=== PATIENT | female | born 1985 | race Caucasian/White ===

== ENCOUNTER 2016-05-05 08:24 | Day surgery (SDC) | payer OTHER ==
[2016-05-03 12:44] VITALS: BMI 48.4
--- NOTE | 2016-05-05 06:46 | P.HPOB ---
History of Present Illness H&P Date: 05/05/16 Chief Complaint: Dysfunctional uterine bleeding Patient is a 30-year-old female who has dysfunctional uterine bleeding. After review of her labs it would appear that she is anovulatory she may or may not have PCO S. Labs were reviewed with the patient. Due to the fact that she is having irregular bleeding for more than a year and only occasional episodes of bleeding will plan to do D&C hysteroscopy to rule out precancerous conditions such as hyperplasia. Risks, benefits, alternatives were discussed with patient in detail and did include bleeding infection and perforation. All the questions were answered for her prior to proceeding to the operating room. Past Medical History Past Medical History: No Reported History Additional Past Medical History / Comment(s): IRREGULAR PERIODS History of Any Multi-Drug Resistant Organisms: None Reported Past Surgical History: No Surgical Hx Reported Past Anesthesia/Blood Transfusion Reactions: No Reported Reaction Additional Past Anesthesia/Blood Transfusion Reaction / Comment(s): NO PRIOR SURGICAL HX Past Psychological History: No Psychological Hx Reported Smoking Status: Never smoker Past Alcohol Use History: None Reported Past Drug Use History: None Reported - Past Family History Mother Family Medical History: Cancer Medications and Allergies Home Medications Medication Instructions Recorded Confirmed Type Levothyroxine Sodium [Levoxyl] 150 mcg PO MOTUWETHFRSA 05/03/16 05/03/16 History Allergies Allergy/AdvReac Type Severity Reaction Status Date / Time No Known Allergies Allergy Verified 05/03/16 12:36 Exam Osteopathic Statement: *. No significant issues noted on an osteopathic structural exam other than those noted in the History and Physical/Consult. - OBG Physical Exam Breast: both: normal (no masses) Abdomen: bowel sounds normal, no diffuse tenderness, no bruit present, no guarding noted, no hepatomegaly, no splenomegaly, no mass Vulva: both: normal Vagina: normal moisture, no discharge Cervix: no lesion, no discharge Uterus: normal size, normal contour Adnexa: both: normal Anus/Rectum: normal perianal skin, no rectal mass, no hemorrhoids, heme negative
[~2016-05-05 08:24] MED LIST: DEXAMETHASONE SOD PHOSPHATE 10 MG/ML 1 ML VIAL IV ONE; HYDROmorphone 1 MG/ML 1 ML SYRINGE IVP PRN; LACTATED RINGERS 1,000 ML IV SCH; LIDOCAINE 1% 20 ML VIAL (10MG/ML) FOR IV START INTRADERMA PRN; ONDANSETRON 4 MG/2 ML VIAL IVP ONE; Pre Op ABX Message 1 EACH MISC MISCELLANE ONE; SCOPOLAMINE 1.5MG/72HR PATCH TRANSDERM ONE
[2016-05-05 08:45] VITALS: RESP 16
[2016-05-05] MEDS ORDERED: KETOROLAC 30 MG/ML 1 ML VIAL ONE (09:46)
[2016-05-05] MEDS ORDERED: fentaNYL (PF) 50 MCG/ML 2 ML AMP ONE (09:46)
[2016-05-05] MEDS ORDERED: PROPOFOL 10 MG/ML 20 ML VIAL IV ONE (09:46)
[2016-05-05] MEDS ORDERED: SUCCINYLCHOLINE CHLORIDE 100 MG/5 ML SYR IV ONE (09:46)
[2016-05-05] MEDS ORDERED: MIDAZOLAM 2 MG/2 ML VIAL ONE (09:46)
[2016-05-05] MEDS ORDERED: LIDOCAINE 1% INJ 10MG/ML (20 ML MDV) ONE (09:46)
[2016-05-05 09:59] LABS: Anisocytosis Slight; Basophils # (A) 0.1 k/uL (0-0.2); Basophils % (A) 1 %; CH 22.3; CHCM 31.8; Eosinophils # (A) 0.2 k/uL (0-0.7); Eosinophils % (A) 3 %; HCT 35.6 % (34.0-46.0); HDW 3.21; HGB 11.8 gm/dL (11.4-16.0); Hypochromasia Slight; Luc # (Auto) 0.09; Luc % (Auto) 1; Lymphocytes # (A) 1.8 k/uL (1.0-4.8); Lymphocytes % (A) 22 %; MCH 23.4 pg (25.0-35.0); MCHC 33.2 g/dL (31.0-37.0); MCV 70.4 fL (80.0-100.0); Mean Platelet Volume 7.7; Microcytosis Moderate; Monocytes # (A) 0.8 k/uL (0-1.0); Monocytes % (A) 9 %; Neutrophils # (A) 5.3 k/uL (1.3-7.7); Neutrophils % (A) 65 %; RBC 5.05 m/uL (3.80-5.40); RDW 16.7 % (11.5-15.5); WBC 8.2 k/uL (3.8-10.6)
--- NOTE | 2016-05-05 10:11 | P.OP ---
Date of Procedure: 05/05/16 Preoperative Diagnosis: Dysfunctional uterine bleeding Postoperative Diagnosis: Same Procedure(s) Performed: D&C with hysteroscopy Anesthesia: LIZZY Surgeon: Kartik Donahue Estimated Blood Loss (ml): 5 Pathology: other (Uterine curettings) Condition: stable Disposition: same day Operative Findings: Proliferative endometrium Description of Procedure: Patient was taken to the operating suite where a general anesthetic was found to be adequate. She was prepped and draped in the normal sterile fashion and placed in the dorsal lithotomy position. Initially a weighted speculum was inserted in the vagina into lip of the cervix identified and grasped single- toothed tenaculum. Cervix was then dilated camera was inserted. Proliferative endometrium was discovered. Camera was then removed and sharp curettings of endometrium were obtained. All this tissue was collected and placed on Telfa and sent to pathology for evaluation. Sponge lap, needle counts were all correct 2 and patient was taken to the recovery room in stable and satisfactory condition. Plan - Discharge Summary New Discharge Prescriptions: Ibuprofen [Motrin] 600 mg PO Q6HR PRN #30 tab PRN Reason: Pain Discharge Medication List Levothyroxine Sodium [Levoxyl] 150 mcg PO MOTUWETHFRSA 05/03/16 [History] Ibuprofen [Motrin] 600 mg PO Q6HR PRN #30 tab 05/05/16 [Rx] Follow up Appointment(s)/Referral(s): Kartik Donahue DO [Doctor of Osteopathic Medicine] - 2 Weeks Activity/Diet/Wound Care/Special Instructions: Pelvic rest, no heavy lifting, limit stairs and driving. If any high temperatures, heavy bleeding, or severe pain call my office Discharge Disposition: HOME SELF-CARE
[2016-05-05 10:17] LABS: Manual Review Performed
[2016-05-05 10:31] VITALS: TEMP 96.8
[2016-05-05 12:11] VITALS: BP 128/80; PULSE 90
== END 2016-05-05 12:28 | disposition home or self-care (01) ==
LOC: OR 08:24
PROVIDERS: ATTEND Obstetrics & Gynecology
DX: N85.01 Benign endometrial hyperplasia (principal); N93.8 Other specified abnormal uterine and vaginal bleeding; E07.9 Disorder of thyroid, unspecified; Z79.899 Other long term (current) drug therapy
CPT/HCPCS: 81025; 88305; 85025; 58558; J2250; J1100; J2405; J2001; J3010; J1885; J0330; J2704

== ENCOUNTER → 2016-08-01 | Outpatient (CLI) | payer OTHER ==
[2016-08-01 16:46] LABS: Anisocytosis Slight; Basophils % (A) 0 %; CH 22.9; CHCM 30.2; Eosinophils # (A) 0.3 k/uL (0-0.7); Eosinophils % (A) 3 %; HCT 40.4 % (34.0-46.0); HDW 2.85; HGB 12.5 gm/dL (11.4-16.0); Hypochromasia Marked; Luc # (Auto) 0.25; Luc % (Auto) 2; Lymphocytes # (A) 2.4 k/uL (1.0-4.8); Lymphocytes % (A) 22 %; MCH 23.5 pg (25.0-35.0); MCHC 30.8 g/dL (31.0-37.0); MCV 76.1 fL (80.0-100.0); Mean Platelet Volume 6.8; Microcytosis Slight; Monocytes # (A) 0.5 k/uL (0-1.0); Monocytes % (A) 5 %; Neutrophils # (A) 7.4 k/uL (1.3-7.7); Neutrophils % (A) 68 %; RBC 5.31 m/uL (3.80-5.40); RDW 16.4 % (11.5-15.5); WBC 10.9 k/uL (3.8-10.6); WBC (Perox) 11.56
== END | disposition home or self-care (01) ==
LOC: LABPAT 16:16
PROVIDERS: ATTEND Obstetrics & Gynecology
DX: Z01.812 Encounter for preprocedural laboratory examination (principal)
CPT/HCPCS: 85025

== ENCOUNTER 2016-08-04 06:16 | Day surgery (SDC) | payer OTHER ==
[2016-08-02 09:36] VITALS: BMI 36.4
[~2016-08-04 06:16] MED LIST changes: -HYDROmorphone 1 MG/ML 1 ML SYRINGE IVP PRN; -LIDOCAINE 1% 20 ML VIAL (10MG/ML) FOR IV START INTRADERMA PRN; +MIDAZOLAM 2 MG/2 ML VIAL IV PRN; -SCOPOLAMINE 1.5MG/72HR PATCH TRANSDERM ONE
--- NOTE | 2016-08-04 07:42 | P.HPOB ---
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 She has been on Provera for approximately 3 months and we are now planning rebiopsy to verify resolution. If this is negative the plan will be to have her see infertility as she is interested in getting . Past medical history otherwise significant for hypothyroidism. Past surgical history D&C. ALLERGIES none. Social history none. Medications include Provera and levothyroxin. Family history of lung cancer. On physical exam this is an obese female whose HEENT is unremarkable. Heart regular, lungs clear , extremities without pain. Abdomen is soft positive bowel sounds are noted. Pelvic exam is otherwise unremarkable. Assessment dysfunctional uterine bleeding with simple hyperplasia with atypia. Plan D&C Past Medical History Past Medical History: No Reported History Additional Past Medical History / Comment(s): IRREGULAR PERIODS History of Any Multi-Drug Resistant Organisms: None Reported Past Surgical History: No Surgical Hx Reported Additional Past Surgical History / Comment(s): D&C Past Anesthesia/Blood Transfusion Reactions: No Reported Reaction Additional Past Anesthesia/Blood Transfusion Reaction / Comment(s): NO PRIOR SURGICAL HX Past Psychological History: No Psychological Hx Reported Smoking Status: Never smoker Past Alcohol Use History: None Reported Past Drug Use History: None Reported - Past Family History Mother Family Medical History: Cancer Additional Family Medical History / Comment(s): LUNG CANCER Medications and Allergies Home Medications Medication Instructions Recorded Confirmed Type Levothyroxine Sodium [Levoxyl] 150 mcg PO MOTUWETHFRSA 05/03/16 08/04/16 History Allergies Allergy/AdvReac Type Severity Reaction Status Date / Time No Known Allergies Allergy Verified 08/04/16 06:29 Exam Osteopathic Statement: *. No significant issues noted on an osteopathic structural exam other than those noted in the History and Physical/Consult. - Vital Signs Vital signs: Vital Signs Temp Pulse Resp BP Pulse Ox 08/04/16 06:37 97.1 F L 87 16 139/82 99
[2016-08-04] MEDS ORDERED: MIDAZOLAM 2 MG/2 ML VIAL ONE (07:55)
[2016-08-04] MEDS ORDERED: LIDOCAINE 1% INJ 10MG/ML (20 ML MDV) ONE (07:55)
[2016-08-04] MEDS ORDERED: KETOROLAC 30 MG/ML 1 ML VIAL ONE (07:55)
[2016-08-04] MEDS ORDERED: PROPOFOL 10 MG/ML 20 ML VIAL IV ONE (07:55)
[2016-08-04] MEDS ORDERED: fentaNYL (PF) 50 MCG/ML 2 ML AMP ONE (07:55)
--- NOTE | 2016-08-04 08:19 | P.OP ---
Date of Procedure: 08/04/16 Preoperative Diagnosis: Dysfunctional uterine bleeding with simple hyperplasia Postoperative Diagnosis: Same Procedure(s) Performed: Dilation and curettage Anesthesia: LIZZY Surgeon: Kartik Donahue Estimated Blood Loss (ml): 1 Pathology: other (Uterine curettings) Condition: stable Disposition: same day Operative Findings: Await pathology Description of Procedure: The patient was taken to the operative suite where a general anesthetic was found be adequate. She was prepped and draped in normal sterile fashion placed in dorsal lithotomy position. Initially a weighted speculum was inserted in the vagina and the anterior lip cervix was identified and grasped with an Allis clamp. Cervix was then dilated and sharp curettings were obtained. This tissue was collected on Telfa paper and sent to pathology for evaluation. Once completed all instruments were removed sponge, lap and needle counts were correct patient was taken to the recovery room in stable and satisfactory condition. Plan - Discharge Summary New Discharge Prescriptions: Ibuprofen [Motrin] 600 mg PO Q6HR PRN #30 tab PRN Reason: Pain Discharge Medication List Levothyroxine Sodium [Levoxyl] 150 mcg PO MOTUWETHFRSA 05/03/16 [History] Ibuprofen [Motrin] 600 mg PO Q6HR PRN #30 tab 08/04/16 [Rx] Follow up Appointment(s)/Referral(s): Kartik Donahue DO [Doctor of Osteopathic Medicine] - 2 Weeks Activity/Diet/Wound Care/Special Instructions: No heavy lifting today, limit stairs and driving. Pelvic rest. If any high temperatures, heavy bleeding, or severe pain call my office Discharge Disposition: HOME SELF-CARE
[2016-08-04 08:31] VITALS: RESP 16; TEMP 97
[2016-08-04 09:29] VITALS: BP 131/78; PULSE 79
== END 2016-08-04 09:39 | disposition home or self-care (01) ==
LOC: OR 06:16
PROVIDERS: ATTEND Obstetrics & Gynecology
DX: N85.01 Benign endometrial hyperplasia (principal); R87.612 Low grade squamous intraepithelial lesion on cytologic smear of cervix (LGSIL); E07.9 Disorder of thyroid, unspecified; Z79.899 Other long term (current) drug therapy; Z80.1 Family history of malignant neoplasm of trachea, bronchus and lung; Z79.3 Long term (current) use of hormonal contraceptives
CPT/HCPCS: 81025; 88305; 58120; J2250; J1100; J2405; J2001; J3010; J1885; J2704

== ENCOUNTER → 2017-01-14 | Outpatient (CLI) | payer OTHER ==
[2017-01-14 11:54] LABS: Anisocytosis Slight; Basophils % (A) 0 %; CH 22.3; Eosinophils # (A) 0.4 k/uL (0-0.7); Eosinophils % (A) 4 %; HCT 40.1 % (34.0-46.0); HDW 2.76; HGB 12.9 gm/dL (11.4-16.0); Hypochromasia Marked; Luc % (Auto) 2; Lymphocytes # (A) 2.9 k/uL (1.0-4.8); Lymphocytes % (A) 24 %; MCHC 32.1 g/dL (31.0-37.0); MCV 74.7 fL (80.0-100.0); Mean Platelet Volume 6.3; Microcytosis Moderate; Monocytes # (A) 0.5 k/uL (0-1.0); Monocytes % (A) 4 %; Neutrophils # (A) 8.2 k/uL (1.3-7.7); Neutrophils % (A) 67 %; RBC 5.37 m/uL (3.80-5.40); RDW 17.6 % (11.5-15.5); WBC 12.2 k/uL (3.8-10.6); WBC (Perox) 11.88
== END | disposition home or self-care (01) ==
LOC: LABPAT 11:27
PROVIDERS: ATTEND Obstetrics & Gynecology
DX: Z01.812 Encounter for preprocedural laboratory examination (principal)
CPT/HCPCS: 36415; 85025

== ENCOUNTER 2017-01-19 06:35 | Day surgery (SDC) | payer OTHER ==
[2017-01-16 12:09] VITALS: BMI 48.2
--- NOTE | 2017-01-19 06:15 | P.HPOB ---
History of Present Illness H&P Date: 01/19/17 Chief Complaint: Hyperplasia Patient is a 31-year-old female who has simple hyperplasia has been on Provera. She has been taking this now for almost 6 months and despite the initial 3 months treatment did continue to have simple hyperplasia. We are repeating the D&C today to verify resolution of this solution may initiate infertility treatment. On physical exam this is a obese female whose HEENT is otherwise unremarkable. Heart regular, lungs clear, extremities without pain. Osteopathic exam unremarkable. Abdomen soft with positive bowel sounds and her pelvic exam is otherwise unremarkable. Assessment simple hyperplasia. Plan dilation and curettage Past Medical History Past Medical History: No Reported History Additional Past Medical History / Comment(s): IRREGULAR PERIODS History of Any Multi-Drug Resistant Organisms: None Reported Past Surgical History: No Surgical Hx Reported Additional Past Surgical History / Comment(s): PRIOR D & C AND HYSTEROSCOPIES X 3 Past Anesthesia/Blood Transfusion Reactions: No Reported Reaction Additional Past Anesthesia/Blood Transfusion Reaction / Comment(s): NO PRIOR SURGICAL HX Smoking Status: Never smoker - Past Family History Mother Family Medical History: Cancer Medications and Allergies Home Medications Medication Instructions Recorded Confirmed Type Levothyroxine Sodium [Levoxyl] 150 mcg PO MOTUWETHFRSA 05/03/16 01/16/17 History Allergies Allergy/AdvReac Type Severity Reaction Status Date / Time No Known Allergies Allergy Verified 01/16/17 12:05 Exam Osteopathic Statement: *. No significant issues noted on an osteopathic structural exam other than those noted in the History and Physical/Consult.
[~2017-01-19 06:35] MED LIST changes: +HYDROmorphone 0.5 MG/0.5 ML SYRINGE IVP PRN; -LACTATED RINGERS 1,000 ML IV SCH; -MIDAZOLAM 2 MG/2 ML VIAL IV PRN
[2017-01-19] MEDS: LACTATED RINGERS 1,000 ML IV SCH ×2 (07:01→07:18)
[2017-01-19] MEDS ORDERED: LIDOCAINE 1% 20 ML VIAL (10MG/ML) FOR IV START SQ ONE (07:02)
[2017-01-19] MEDS ORDERED: PROPOFOL 10 MG/ML 20 ML VIAL IV ONE (07:20)
[2017-01-19] MEDS ORDERED: KETOROLAC 30 MG/ML 1 ML VIAL ONE (07:20)
[2017-01-19] MEDS ORDERED: MIDAZOLAM 2 MG/2 ML VIAL ONE (07:20)
[2017-01-19] MEDS ORDERED: fentaNYL (PF) 50 MCG/ML 2 ML AMP ONE (07:20)
--- NOTE | 2017-01-19 07:42 | P.OP ---
Date of Procedure: 01/19/17 Preoperative Diagnosis: Simple hyperplasia Postoperative Diagnosis: Same Procedure(s) Performed: D&C Anesthesia: LIZZY Surgeon: Kartik Donahue Estimated Blood Loss (ml): 3 Pathology: other (Uterine curettings) Condition: stable Disposition: same day Operative Findings: Pathology pending Description of Procedure: Patient states the operating suite where a general anesthetic was found be adequate. She was prepped and draped in normal sterile fashion placed in dorsal lithotomy position. Initially a speculum was inserted into the vagina into lip cervix was grasped with an Allis clamp and the cervix was dilated. Sharp curettings of the endometrium were obtained and all tissues collected placed on Telfa. This tissue was sent to pathology. All instruments were then removed sponge, lap, needle counts were all correct 2. Patient was taken to the recovery room in stable and satisfactory condition. Plan - Discharge Summary New Discharge Prescriptions: No Action Levothyroxine Sodium [Levoxyl] 150 mcg PO MOTUWETHFRSA Discharge Medication List Levothyroxine Sodium [Levoxyl] 150 mcg PO MOTUWETHFRSA 05/03/16 [History] Follow up Appointment(s)/Referral(s): Kartik Donahue DO [Doctor of Osteopathic Medicine] - 2 Weeks Activity/Diet/Wound Care/Special Instructions: No heavy lifting limited stairs and driving and no pelvic rest today. If any high temperatures, heavy bleeding, or severe pain call the office Discharge Disposition: HOME SELF-CARE
[2017-01-19 07:51] VITALS: TEMP 97.6
[2017-01-19 09:01] VITALS: BP 128/87; PULSE 80; RESP 18
== END 2017-01-19 09:24 | disposition home or self-care (01) ==
LOC: OR 06:35
PROVIDERS: ATTEND Obstetrics & Gynecology
DX: N85.02 Endometrial intraepithelial neoplasia [EIN] (principal); E07.9 Disorder of thyroid, unspecified; Z79.899 Other long term (current) drug therapy
CPT/HCPCS: 81025; 58120; J2250; J1100; J2405; J3010; J1885; J2704; 88305

== ENCOUNTER → 2017-06-14 | Outpatient (CLI) | payer OTHER | END | disposition home or self-care (01) | LOC: LABWHC1 11:53 | PROVIDERS: ATTEND Internal Medicine Endocrinology, Diabetes & Metabolism | DX: E06.3 Autoimmune thyroiditis (principal) | CPT/HCPCS: 36415; 84443 ==

== ENCOUNTER 2019-03-11 21:59 | Inpatient (IN) | payer OTHER ==
--- NOTE | 2019-03-11 22:24 | XR ---
EXAMINATION TYPE: XR chest 2V DATE OF EXAM: 03/11/2019 COMPARISON: NONE HISTORY: Cough and fever TECHNIQUE: Frontal and lateral views of the chest are obtained. FINDINGS: There is some coarse airspace infiltrate in the right lower lobe and also to a lesser exte nt left upper lobe. Heart size is normal. There is no heart failure. There is no pleural effusion. Th ere is also some mild infiltrate left lower lobe. IMPRESSION: Bilateral pneumonia. Normal heart.
[2019-03-11] MEDS ORDERED: LEVOFLOXACIN 750MG-D5W PMX 750 MG in DEXTROSE/WATER 1 150ML.BAG IVPB STA (22:32)
[2019-03-11] MEDS ORDERED: IPRATROPIUM-ALBUTEROL 3 ML NEB INHALATION STA (22:32)
[2019-03-11] MEDS ORDERED: PIPERACILLIN-TAZOBACTAM 3.375 GM in SODIUM CHLORIDE 0.9% 100 ML IVPB STA (23:02)
[2019-03-11] MEDS ORDERED: methylPREDNISolone SOD SUCCI 125 MG/2 ML VIAL IV STA (23:06)
[2019-03-11 23:15] LABS: Appearance,Urine Clear (Clear); Bilirubin,Urine Negative (Negative); Blood,Urine Negative (Negative); Color,Urine Yellow; Glucose,Urine (UA) Negative (Negative); Hyaline Casts,Urine 3 /lpf (0-2); Ketones,Urine Trace (Negative); Leukocyte Esterase,Urine Negative (Negative); Mucus,Urine Occasional /hpf; Nitrite,Urine Negative (Negative); PH, Urine 5.5 (5.0-8.0); Protein,Urine 1+ (Negative); RBC,Urine 1 /hpf (0-5); Specific Gravity,Urine 1.026 (1.001-1.035); Squamous Epithelial Cell,Urine 2 /hpf (0-4); Urobilinogen,Urine <2.0 mg/dL (<2.0)
[2019-03-11 23:26] LABS: ALT 50 U/L (9-52); AST 37 U/L (14-36); African American GFR (CKD) >90 (>60 ml/min/1.73 sqM); Albumin 4.4 g/dL (3.5-5.0); Alkaline Phosphatase 75 U/L (38-126); Anion Gap 14 mmol/L; Blood Urea Nitrogen 11 mg/dL (7-17); Calcium 9.3 mg/dL (8.4-10.2); Carbon Dioxide 20 mmol/L (22-30); Chloride 103 mmol/L (98-107); Glucose 134 mg/dL (74-99); Non-African American GFR(CKD) 84 (>60 ml/min/1.73 sqM); Potassium 4.4 mmol/L (3.5-5.1); Sodium 137 mmol/L (137-145); Total Bilirubin 0.4 mg/dL (0.2-1.3); Total Protein 8.1 g/dL (6.3-8.2)
[2019-03-11] MEDS ORDERED: IBUPROFEN 600 MG TAB PO STA (23:31)
[2019-03-11] MEDS ORDERED: ACETAMINOPHEN TAB 325 MG TAB PO STA (23:31)
[2019-03-11 23:33] LABS: Basophils % (A) 0 %; Eosinophils % (A) 0 %; HCT 41.4 % (34.0-46.0); Lymphocytes # (A) 0.8 k/uL (1.0-4.8); Lymphocytes % (A) 7 %; MCH 26.5 pg (25.0-35.0); MCHC 33.8 g/dL (31.0-37.0); MCV 78.3 fL (80.0-100.0); Monocytes # (A) 0.5 k/uL (0-1.0); Monocytes % (A) 4 %; Neutrophils # (A) 11.1 k/uL (1.3-7.7); Neutrophils % (A) 88 %; Platelet Count 251 k/uL (150-450); RBC 5.29 m/uL (3.80-5.40); RDW 14.6 % (11.5-15.5); WBC 12.6 k/uL (3.8-10.6)
--- NOTE | 2019-03-11 23:35 | ED ---
General Adult HPI - General Chief complaint: Upper Respiratory Infection Stated complaint: pneumonia Time Seen by Provider: 03/11/19 22:07 Source: patient, RN notes reviewed, old records reviewed Mode of arrival: ambulatory Limitations: no limitations - History of Present Illness Initial comments: 33-year-old female patient with no pertinent past to press ED chief complaint of approximately 1 week of cough and fever. Patient reports that approximately one week ago she presented to urgent care with cough and fever and she was placed on Augmentin. Patient was that after one week of Augmentin her symptoms have not improved. Patient went back to urgent care today where she reportedly had low pulse oxygenation. A was administered a gram Rocephin since emergency department. Patient was that she continues to have cough and some mild shortness of breath. Denies any chest pain. Denies any chance of being . Does report some fevers and chills. Denies any other complaints at this time. Denies any history of smoking. Denies any history of asthma. Systemic: Pt denies fatigue,rash. Pt denies weakness, night sweats, weight loss. Neuro: Pt denies headache, visual disturbances, syncope or pre-syncope. HEENT: Pt denies ocular discharge or irritation, otalgia, rhinorrhea, pharyngitis or notable lymphadenopathy. Cardiopulmonary: Pt denies chest pain, heart palpitations, dyspnea on exertion. Abdominal/GI: Pt denies abdominal pain, n/v/d. : Pt denies dysuria, burning w/ urination, frequency/urgency. Denies new onset urinary or bowel incontinence. MSK: Pt denies myalgia, loss of strength or function in extremities. Neuro: Pt denies new onset weakness, paresthesias. - Related Data Home Medications Medication Instructions Recorded Confirmed Levothyroxine Sodium [Levoxyl] 150 mcg PO MOTUWETHFRSA 05/03/16 01/19/17 Allergies Allergy/AdvReac Type Severity Reaction Status Date / Time No Known Allergies Allergy Verified 03/11/19 22:04 Review of Systems ROS Statement: Those systems with pertinent positive or pertinent negative responses have been documented in the HPI. ROS Other: All systems not noted in ROS Statement are negative. Past Medical History Past Medical History: No Reported History Additional Past Medical History / Comment(s): IRREGULAR PERIODS History of Any Multi-Drug Resistant Organisms: None Reported Past Surgical History: No Surgical Hx Reported Past Anesthesia/Blood Transfusion Reactions: No Reported Reaction Additional Past Anesthesia/Blood Transfusion Reaction / Comment(s): NO PRIOR SURGICAL HX Past Psychological History: No Psychological Hx Reported Smoking Status: Never smoker Past Alcohol Use History: None Reported Past Drug Use History: None Reported - Past Family History Mother Family Medical History: Cancer General Exam - General Exam Comments Initial Comments: Constitutional: NAD, AOX3, Pt has pleasant affect. HEENT: NC/AT, trachea midline, neck supple, no lymphadenopathy. Posterior pharynx non erythematous, without exudates. External ears appear normal, without discharge. Mucous membranes moist. Eyes PERRLA, EOM intact. There is no scleral icterus. No pallor noted. Cardiopulmonary: RRR, no murmurs, rubs or gallops, no JVD noted. Wheezing noted in anterior and posterior lung barnes, improved after breathing treatment.. No peripheral edema. Abdominal exam: Abdomen soft and non-distended. Abdomen non-tender to palpation in all 4 quadrants. Bowel sounds active in LLQ. No hepatosplenomegaly. No ecchymosis Neuro: CN II-XII grossly intact. No nuchal rigidity. No raccon eyes, no zepeda sign, no hemotympanum. No cervical spinal tenderness. MSK: No posterior calf tenderness bilaterally, homans sign negative bilaterally. Posterior tibialis and radial pulse +2 bilaterally. Sensation intact in upper and lower extremities. Full active ROM in upper and lower extremities, 5/5 stregnth. Limitations: no limitations Course Vital Signs 03/11/19 03/11/19 03/11/19 22:01 22:12 22:39 Temperature 99.9 F H Pulse Rate 105 H 101 H Respiratory 20 20 20 Rate Blood Pressure 185/95 144/74 O2 Sat by Pulse 93 L 90 L Oximetry 03/11/19 23:01 Temperature Pulse Rate 104 H Respiratory Rate Blood Pressure O2 Sat by Pulse Oximetry Medical Decision Making - Medical Decision Making 33-year-old female patient presents ED with failed outpatient treatment of pneumonia. Patient complains of cough, fever, shortness of breath. Denies any chest pain. Patient vital signs displayed mild tachycardia, hypoxia, fever. Pa tient administered antipyretic.. Physical exam displayed wheezing in anterior lung barnes. Much improved after breathing treatment. Laboratory investigations revealed mild leukocytosis. Chest x-ray displayed bilateral pneumonia. Patient will be admitted for failed outpatient treatment of pneumon ia. Initiated on Zosyn, Levaquin. Case discussed and patient seen by Dr. Barboza. - Lab Data Result diagrams: 03/11/19 23:00 Lab Results 03/11/19 03/11/19 03/11/19 Range/Units 23:00 23:00 23:00 Sodium 137 (137-145) mmol/L Potassium 4.4 (3.5-5.1) mmol/L Chloride 103 (98-107) mmol/L Carbon Dioxide 20 L (22-30) mmol/L Anion Gap 14 mmol/L BUN 11 (7-17) mg/dL Creatinine 0.92 (0.52-1.04) mg/dL Est GFR (CKD-EPI)AfAm >90 (>60 ml/min/1.73 sqM) Est GFR (CKD-EPI)NonAf 84 (>60 ml/min/1.73 sqM) Glucose 134 H (74-99) mg/dL Plasma Lactic Acid Kenneth (0.7-2.0) mmol/L Calcium 9.3 (8.4-10.2) mg/dL Total Bilirubin 0.4 (0.2-1.3) mg/dL AST 37 H (14-36) U/L ALT 50 (9-52) U/L Alkaline Phosphatase 75 (38-126) U/L Total Protein 8.1 (6.3-8.2) g/dL Albumin 4.4 (3.5-5.0) g/dL Urine Color Yellow Urine Appearance Clear (Clear) Urine pH 5.5 (5.0-8.0) Ur Specific [place] 1.026 (1.001-1.035) Urine Protein 1+ H (Negative) Urine Glucose (UA) Negative (Negative) Urine Ketones Trace H (Negative) Urine Blood Negative (Negative) Urine Nitrite Negative (Negative) Urine Bilirubin Negative (Negative) Urine Urobilinogen <2.0 (<2.0) mg/dL Ur Leukocyte Esterase Negative (Negative) Urine RBC 1 (0-5) /hpf Urine WBC 1 (0-5) /hpf Ur Squamous Epith Cells 2 (0-4) /hpf Hyaline Casts 3 H (0-2) /lpf Urine Mucus Occasional H (None) /hpf Urine HCG, Qual Not Detected (Not Detectd) 11/18/19 Range/Units 23:00 Sodium (137-145) mmol/L Potassium (3.5-5.1) mmol/L Chloride (98-107) mmol/L Carbon Dioxide (22-30) mmol/L Anion Gap mmol/L BUN (7-17) mg/dL Creatinine (0.52-1.04) mg/dL Est GFR (CKD-EPI)AfAm (>60 ml/min/1.73 sqM) Est GFR (CKD-EPI)NonAf (>60 ml/min/1.73 sqM) Glucose (74-99) mg/dL Plasma Lactic Acid Kenneth 1.3 (0.7-2.0) mmol/L Calcium (8.4-10.2) mg/dL Total Bilirubin (0.2-1.3) mg/dL AST (14-36) U/L ALT (9-52) U/L Alkaline Phosphatase (38-126) U/L Total Protein (6.3-8.2) g/dL Albumin (3.5-5.0) g/dL Urine Color Urine Appearance (Clear) Urine pH (5.0-8.0) Ur Specific [place] (1.001-1.035) Urine Protein (Negative) Urine Glucose (UA) (Negative) Urine Ketones (Negative) Urine Blood (Negative) Urine Nitrite (Negative) Urine Bilirubin (Negative) Urine Urobilinogen (<2.0) mg/dL Ur Leukocyte Esterase (Negative) Urine RBC (0-5) /hpf Urine WBC (0-5) /hpf Ur Squamous Epith Cells (0-4) /hpf Hyaline Casts (0-2) /lpf Urine Mucus (None) /hpf Urine HCG, Qual (Not Detectd) Disposition Clinical Impression: Community acquired pneumonia Disposition: ADMITTED IP TO THIS [facility] Condition: Serious Is patient prescribed a controlled substance at d/c from ED?: No Referrals: None,Stated [Primary Care Provider] - 1-2 days
[2019-03-11] MEDS ORDERED: ACETAMINOPHEN TAB 325 MG TAB PO PRN (23:36)
[2019-03-11] MEDS ORDERED: IBUPROFEN 800 MG TAB PO PRN (23:36)
[2019-03-12] MEDS: SODIUM CHLORIDE 0.9% 1,000 ML IV SCH ×3 (00:27→20:20)
[2019-03-12] MEDS: methylPREDNISolone SOD SUCCI 125 MG/2 ML VIAL IV SCH ×2 (00:51→06:03)
[2019-03-12] MEDS ORDERED: PIPERACILLIN-TAZOBACTAM 3.375 GM in SODIUM CHLORIDE 0.9% 100 ML IVPB SCH (08:00)
[2019-03-12] MEDS: IPRATROPIUM-ALBUTEROL 3 ML NEB INHALATION SCH ×4 (08:04→20:01)
--- NOTE | 2019-03-12 11:35 | P.HPIM ---
History of Present Illness This is a pleasant 33 years old female with no significant past medical history, who presents because of cough and fever. Patient has been having respiratory symptoms for about a week with cough and green phlegm and dyspnea but no chest pain or upper respiratory symptoms and amoxicillin and prednisone and other medicine that she cannot remember the name, she went to see her PCP yesterday and the walk-in clinic and for concern for nonimprovement and drop on her oxygen to 89 on room air she was referred to the hospital. Patient has mild headache and some diarrhea but no abdominal pain or change in urine habits. She's not in respiratory distress or so the patient. No vomiting. On admission she had fever of 99.9, tachycardic with an 05 and slightly tachypneic with a respiratory rate around 20. Labs showed leukocytosis of 12.6, BMP and liver enzymes were unremarkable. Chest x-ray: Bilateral pneumonia In the emergency room patient was started on ibuprofen, Levaquin 750 mg, Solu- Medrol 60 mg and Zosyn. Also she was started on normal saline at [address] Bains has been consulted from emergency room I offered test however patient declined areas risks benefits and alternatives are explained Patient denies smoking, alcohol or illicit drugs . Review of Systems CONSTITUTIONAL: No fever, no malaise, no fatigue. HEENT: No recent visual problems or hearing problems. Denied any sore throat. CARDIOVASCULAR: No orthopnea, PND, no palpitations, no syncope. PULMONARY: No shortness of breath, no cough, no hemoptysis. GASTROINTESTINAL: No diarrhea, no nausea, no vomiting, no abdominal pain. Normoactive bowel sounds. NEUROLOGICAL: No headaches, no weakness, no numbness. HEMATOLOGICAL: Denies any bleeding or petechiae. GENITOURINARY: Denies any burning micturition, frequency, or urgency. MUSCULOSKELETAL/RHEUMATOLOGICAL: Denies any joint pain, swelling, or any muscle pain. ENDOCRINE: Denies any polyuria or polydipsia. Past Medical History Past Medical History: No Reported History, Thyroid Disorder Additional Past Medical History / Comment(s): IRREGULAR PERIODS History of Any Multi-Drug Resistant Organisms: None Reported Past Surgical History: No Surgical Hx Reported Past Anesthesia/Blood Transfusion Reactions: No Reported Reaction Additional Past Anesthesia/Blood Transfusion Reaction / Comment(s): NO PRIOR SURGICAL HX Past Psychological History: No Psychological Hx Reported Smoking Status: Never smoker Past Alcohol Use History: None Reported Past Drug Use History: None Reported - Past Family History Mother Family Medical History: Cancer Medications and Allergies Home Medications Medication Instructions Recorded Confirmed Type No Known Home Medications 03/11/19 03/11/19 History Allergies Allergy/AdvReac Type Severity Reaction Status Date / Time No Known Allergies Allergy Verified 03/11/19 23:49 Physical Exam Vitals: Vital Signs Temp Pulse Pulse Resp BP BP Pulse Ox 03/12/19 05:55 98.1 F 89 20 127/78 93 L 03/12/19 00:30 20 93 L 03/12/19 00:10 98.1 F 93 20 127/79 91 L 03/11/19 23:51 93 L 03/11/19 23:01 104 H 03/11/19 22:39 101 H 20 144/74 90 L 03/11/19 22:12 20 03/11/19 22:01 99.9 F H 105 H 20 185/95 93 L Intake and Output 03/11/19 03/11/19 03/12/19 14:59 22:59 06:59 Other: # Voids 2 Weight 128.367 kg GENERAL: The patient is alert and oriented x3, not in any acute distress. Obese HEENT: Pupils are round and equally reacting to light. EOMI. No scleral icterus. No conjunctival pallor. Normocephalic, atraumatic. No pharyngeal erythema. No thyromegaly. CARDIOVASCULAR: S1 and S2 present. No murmurs, rubs, or gallops. -PULMONARY: Chest is harsh breath sounds to auscultation especially on the basis with scattered wheezing, no prolonged expiration ABDOMEN: Soft, nontender, nondistended, normoactive bowel sounds. No palpable organomegaly. MUSCULOSKELETAL: No joint swelling or deformity. EXTREMITIES: No cyanosis, clubbing, or pedal edema. NEUROLOGICAL: Gross neurological examination did not reveal any focal deficits. SKIN: No rashes. No petechiae Results CBC & Chem 7: 03/11/19 23:00 03/11/19 23:00 Labs: Abnormal Lab Results - Last 24 Hours (Table) 03/11/19 03/11/19 03/11/19 Range/Units 23:00 23:00 23:00 WBC 12.6 H (3.8-10.6) k/uL MCV 78.3 L (80.0-100.0) fL Neutrophils # 11.1 H (1.3-7.7) k/uL Lymphocytes # 0.8 L (1.0-4.8) k/uL Carbon Dioxide 20 L (22-30) mmol/L Glucose 134 H (74-99) mg/dL AST 37 H (14-36) U/L Urine Protein 1+ H (Negative) Urine Ketones Trace H (Negative) Hyaline Casts 3 H (0-2) /lpf Urine Mucus Occasional H (None) /hpf Thrombosis Risk Factor Assmnt - Choose All That Apply Each Factor Represents 1 point: Obesity (BMI >25) Other Risk Factors: No Other congenital or acquired thrombophilia - If yes, enter type in comment: No Thrombosis Risk Factor Assessment Total Risk Factor Score: 1 Thrombosis Risk Factor Assessment Level: Low Risk Assessment and Plan Assessment: Systemic inflammatory response syndrome with fever, tachycardia and tachypnea and leukocytosis Bilateral pneumonia with sepsis, present on admission Mild leukocytosis, secondary to above Plan: Labs and medication were reviewed.. Continue same treatment. Continue with symptomatic treatment. Resume home medication. Monitor lytes and vitals. DVT and GI prophylaxis. Further recommendations of the clinical course of the mando ent DVT prophylaxis: Subcutaneous heparin GI Prophylaxis: Pepcid PT/OT: Pending Prognosis is guarded
[2019-03-12 11:58] LABS: Glucose,Whole Blood 182 mg/dL (75-99)
--- NOTE | 2019-03-12 12:15 | CONS ---
CONSULTATION PULMONARY/CRITICAL CARE CONSULTATION: DATE OF CONSULTATION: March 12, 2019 This is a 33-year-old female who has no significant past medical history other than a few episodes in the past of bronchitis. She has no known history of any lung disease. For the last week or 10 days, she has not been feeling well. She presents to the emergency room with complaints of cough and fever. She had chest congestion, wheezing and some phlegm production. She apparently went to go see somebody at an urgent care center. She was treated with Augmentin. Subsequent to that, she went back to the Urgent Care and received a shot of Rocephin. She may have also received some breathing treatments and also some steroids. Because she really was not improving, the patient comes back to the emergency room where she was admitted with a diagnosis of pneumonia. She apparently was told at the Urgent Care Center without a chest x-ray that she had pneumonia, but again she was actually never seen by a physician. I believe she saw physician's orthodontic assistant and she never had a chest x-ray. Nonetheless, she is feeling much better. She is sitting upright in bed. She is not requiring any supplemental oxygen. Her breathing is improved. She does have a wet congested cough. MEDICATIONS: Her home medications include levothyroxine. ALLERGIES: She has no known allergies. MEDICAL HISTORY: Medical history includes hypothyroidism. SURGICAL HISTORY: Unremarkable. FAMILY HISTORY: Positive for mother with cancer. SOCIAL HISTORY: Negative for tobacco use. Denies alcohol or illicit drug use. No additional surgical history noted and as I mentioned above, no history previous of any lung disease. REVIEW OF SYSTEMS: CONSTITUTIONAL: Fever. NEUROLOGIC: Negative. HEENT: Negative. CARDIOVASCULAR: Negative. PULMONARY: Shortness of breath, chest congestion, cough, wheezing and phlegm production. GI: Negative. : Negative. RHEUMATOLOGIC: Negative. IMMUNOLOGIC: Negative. ENDOCRINOLOGIC: Negative. DERMATOLOGIC: Negative. PHYSICAL EXAMINATION: VITAL SIGNS: Current vital signs are reviewed. Temperature is 98.1, heart rate 88, respiratory rate 20, blood pressure 127/78, room-air saturation 93%. GENERAL: Appears in no acute distress. HEENT: Examination is grossly unremarkable. Mucous membranes are moist. No oral lesions. NECK: Supple. Full range of motion. No adenopathy, thyromegaly or neck vein distention. CARDIOVASCULAR: Examination reveals regular rhythm and rate. Heart rate 88 beats per minute. S1, S2 normal. No S3, S4, or murmur. LUNGS: Reveal coarse rhonchi. There are some expiratory wheezes. Some crackles bilaterally. Breath sounds equal bilaterally. ABDOMEN: Soft, but obese. Bowel sounds are heard. EXTREMITIES: Are intact. No cyanosis, clubbing, or edema. SKIN: Without rash. NEUROLOGIC: Examination is brief but nonfocal. LABS: Labs are reviewed. White count 12.6, hemoglobin 14, hematocrit 41.4, platelet count 251,000. Sodium 137, potassium 4.4, chloride 103, CO2 is 20. Anion gap is 14. BUN and creatinine were 11 and 0.92. Rest of the labs look okay. Urine is essentially negative. Influenza screen was negative. A chest x-ray shows bilateral airspace disease, mostly in the right lower lobe and somewhat in the left upper lung. Microbiology is currently pending or negative. MEDICATIONS: Medications are reviewed. Currently, she is on Tylenol, Motrin, insulin p.r.n., DuoNeb, Levaquin, Solu-Medrol, and was on Zosyn, that has been discontinued. ASSESSMENT: 1. Community-acquired pneumonia, in a patient who otherwise is very healthy. 2. History of hypothyroidism. 3. Mild bronchitis with bronchospasm. 4. No history of previous lung disease. 5. Obesity PLAN: The patient's medications are appropriate. We will cut back on the Solu-Medrol. We discontinued the Zosyn. Possible discharge tomorrow. We recommend deep breathing, coughing, clearing of secretions. We also recommend the incentive spirometer to be used every hour while awake. The updrafts are appropriate. Steroid dose is appropriate. It has been dropped down. Continue her on the Levaquin. Discontinue the Zosyn. We will continue to follow. Prognosis is good. MMODL / IJN: [id number] / GLORY
[2019-03-12] MEDS: INSULIN ASPART (NovoLOG) 100 UNIT/ML VIAL SQ SCH ×3 (12:40→22:18)
[2019-03-12 16:51] LABS: Glucose,Whole Blood 169 mg/dL (75-99)
[2019-03-12] MEDS: methylPREDNISolone SOD SUCCI 40 MG/ML 1 ML VIAL IV SCH ×2 (17:34→23:25)
[2019-03-12 20:42] LABS: Glucose,Whole Blood 201 mg/dL (75-99)
[2019-03-12] MEDS: FAMOTIDINE 20 MG/2 ML VIAL IV SCH (23:07)
[2019-03-12] MEDS: HEPARIN SODIUM,PORCINE 5,000 UNIT/ML 1 ML VIAL SQ SCH (23:08)
[2019-03-12] MEDS ORDERED: LEVOFLOXACIN 750MG-D5W PMX 750 MG in DEXTROSE/WATER 1 150ML.BAG IVPB SCH (23:15)
[2019-03-13 05:29] VITALS: BP 137/65; RESP 17; TEMP 97.9
[2019-03-13] MEDS: SODIUM CHLORIDE 0.9% 1,000 ML IV SCH (05:46)
[2019-03-13 06:35] LABS: Basophils % (A) 0 %; Eosinophils % (A) 0 %; HCT 40.3 % (34.0-46.0); HGB 13.2 gm/dL (11.4-16.0); Hypochromasia Slight; Lymphocytes # (A) 1.1 k/uL (1.0-4.8); Lymphocytes % (A) 6 %; MCH 26.1 pg (25.0-35.0); MCHC 32.7 g/dL (31.0-37.0); MCV 79.9 fL (80.0-100.0); Mean Platelet Volume 5.8; Monocytes # (A) 0.5 k/uL (0-1.0); Monocytes % (A) 3 %; Neutrophils # (A) 17.5 k/uL (1.3-7.7); Neutrophils % (A) 91 %; Platelet Count 306 k/uL (150-450); RBC 5.05 m/uL (3.80-5.40); RDW 14.8 % (11.5-15.5); WBC 19.3 k/uL (3.8-10.6)
[2019-03-13 06:54] LABS: Glucose,Whole Blood 130 mg/dL (75-99)
[2019-03-13] MEDS: IPRATROPIUM-ALBUTEROL 3 ML NEB INHALATION SCH ×2 (07:13→11:24)
[2019-03-13] MEDS: INSULIN ASPART (NovoLOG) 100 UNIT/ML VIAL SQ SCH ×2 (08:27→11:56)
[2019-03-13] MEDS: methylPREDNISolone SOD SUCCI 40 MG/ML 1 ML VIAL IV SCH (08:28)
[2019-03-13] MEDS: HEPARIN SODIUM,PORCINE 5,000 UNIT/ML 1 ML VIAL SQ SCH (08:29)
[2019-03-13] MEDS: FAMOTIDINE 20 MG/2 ML VIAL IV SCH (08:29)
[2019-03-13 11:30] LABS: Glucose,Whole Blood 124 mg/dL (75-99)
[2019-03-13 11:38] VITALS: PULSE 85
--- NOTE | 2019-03-13 11:39 | P.PN ---
Subjective Progress Note Date: 03/13/19 Principal diagnosis: Community-acquired pneumonia The patient is seen today 03/13/2019 in follow-up on the regular medical floor. She is sitting up in bed. Awake and alert in no acute distress. Breathing easier today compared to yesterday. Still with a loose productive cough. Maintaining good O2 saturations in the 90s on room air. She's afebrile. Hemodynamically stable. Blood culture reveals no growth. Sputum culture pending. White count 19.3. Hemoglobin 13.2. She is continued on DuoNeb inhalations, steroids, antibiotics. Objective - Vital Signs Vital signs: Vital Signs Temp 97.9 F 03/13/19 05:28 Pulse 84 03/13/19 11:24 Resp 17 03/13/19 08:00 BP 137/65 03/13/19 05:28 Pulse Ox 95 03/13/19 05:28 Intake & Output 03/12/19 03/13/19 03/13/19 18:59 06:59 18:59 Intake Total 630 300 Balance 630 300 Intake: Oral 630 300 Other: Voiding Method Toilet Toilet Toilet # Voids 4 2 - Exam GENERAL EXAM: Alert, active, pleasant 33-year-old female patient, on room air, comfortable in no apparent distress. HEAD: Normocephalic. EYES: Normal reaction of pupils, equal size. NOSE: Clear with pink turbinates. THROAT: No erythema or exudates. NECK: No masses, no JVD. CHEST: No chest wall deformity. LUNGS: Equal air entry with few scattered rhonchi. CVS: S1 and S2 normal with no audible murmur, regular rhythm. ABDOMEN: No hepatosplenomegaly, normal bowel sounds, no guarding or rigidity. SPINE: No scoliosis or deformity SKIN: No rashes CENTRAL NERVOUS SYSTEM: No focal deficits, tone is normal in all 4 extremities. EXTREMITIES: There is no peripheral edema. No clubbing, no cyanosis. Peripheral pulses are intact. - Labs CBC & Chem 7: 03/13/19 05:49 03/11/19 23:00 Labs: Abnormal Lab Results - Last 24 Hours (Table) 03/12/19 03/12/19 03/12/19 Range/Units 11:57 16:50 20:41 WBC (3.8-10.6) k/uL MCV (80.0-100.0) fL Neutrophils # (1.3-7.7) k/uL POC Glucose (mg/dL) 182 H 169 H 201 H (75-99) mg/dL 03/13/19 03/13/19 03/13/19 Range/Units 05:49 06:43 11:23 WBC 19.3 H (3.8-10.6) k/uL MCV 79.9 L (80.0-100.0) fL Neutrophils # 17.5 H (1.3-7.7) k/uL POC Glucose (mg/dL) 130 H 124 H (75-99) mg/dL Microbiology - Last 24 Hours (Table) 03/12/19 20:00 Gram Stain - Preliminary Sputum Sputum Culture - Preliminary 03/11/19 23:00 Blood Culture - Preliminary Blood No Growth after 24 hours Assessment and Plan Assessment: #1 Acute community-acquired pneumonia, failed outpatient treatment. #2 Hypothyroidism. #3 Mild bronchitis with bronchospasm. #4 Obesity. Plan: The patient was seen and evaluated by Dr. Joe. She is improved today as compared to yesterday. She is cleared for discharge from the pulmonary standpoint. Complete course of antibiotics. Complete course of prednisone. Follow-up in our office in 1-2 weeks' time. We will repeat a chest x-ray then. She is encouraged to call sooner with any recurrence of symptoms or other questions or concerns. I, the cosigning physician, performed a history & physical examination of the patient. Lungs sounds with few scattered rhonchi. Maintaining good O2 saturations in the 90s on room air. I discussed the assessment and plan of care with my nurse practitioner, Sheri Hernández. I attest to the above note as dictated by her.
--- NOTE | 2019-03-13 11:43 | P.DS ---
Providers Date of admission: 03/11/19 23:14 Attending physician: Clint Mart MD Consults: 03/11/19 23:20 Consult Physician Urgent Consulting Provider: Zander Joe Reason/Comments: pna Do you want consulting provider notified?: Yes Primary care physician: Stated None Hospital Course: Diagnoses: Systemic inflammatory response syndrome with fever, tachycardia and tachypnea and leukocytosis Bilateral pneumonia with sepsis, present on admission Mild leukocytosis, secondary to above. Worsening leukocytosis is mostly due to steroid effect Hospital course: This is a pleasant 33 years old female with no significant past medical history, who presents because of cough and fever. Patient has been having respiratory symptoms for about a week with cough and green phlegm and dyspnea but no chest pain or upper respiratory symptoms she was treated with antibiotics and steroids as an outpatient however she has minimal improvement, she wanted to the walk-in clinic and for concern for non-improvement and drop on her oxygen to 89 on room air she was referred to the hospital. Patient on presentation showing mild leukocytosis of 12.6 K and bilateral pneumonia on the chest x-ray. Patient was started on Levaquin 750 mg as limited to 60 mg which was downgraded to 40 mg as well as bronchodilators. Patient has been evaluated by distresser. Patient showed interval improvement and she is back close to her baseline, with minimal dyspnea, she could walk in the hallway with no difficulty. She still have some mild cough and loose bowel movement but no abdominal pain or vomiting. No chest pain. She starting diet well. She is hemodynamically stable and she is saturating 95% on room air. Patient does she can go home Patient denies other symptoms like no weakness or headache. Patient was cleared for discharge by pulmonary service Problems and management plan were discussed with the patient and he verbalized understanding and acceptance. at bedside upon patient request Patient was found stable and can be discharged home however he needs follow-up as an outpatient. Patient was instructed to follow up with PCP within one week (she told me she sees Dr. Ansari ) and distresser in 1-2 weeks and patient agrees. We offered to make appointments for the patient but she preferred to make her own appointments patient Patient will be discharged on short course of antibiotics and tapered steroids Gen: patient is a AAOx3, no distress CVS: S1-S2, RRR, no murmur Lungs: B/L CTA, no wheezing Abdomen: soft, no distention, no tenderness, positive bowel sounds Extremity: no leg edema or induration Time spent more than 35 minutes Patient Condition at Discharge: Serious Plan - Discharge Summary New Discharge Prescriptions: New Famotidine 10 mg PO BID #30 tab Levofloxacin [Levaquin] 500 mg PO Q24H 7 Days #7 tab predniSONE 0 mg PO DIRECTED #26 tab Acetaminophen Tab [Tylenol] 650 mg PO Q6HR PRN tab PRN Reason: Fever and/ or Mild Pain Albuterol Inhaler [Ventolin Hfa Inhaler] 1 - 2 puff INHALATION RT-Q6H PRN #1 inhaler PRN Reason: Shortness Of Breath Or Wheezing Discharge Medication List Acetaminophen Tab [Tylenol] 650 mg PO Q6HR PRN tab 03/13/19 [Rx] Albuterol Inhaler [Ventolin Hfa Inhaler] 1 - 2 puff INHALATION RT-Q6H PRN #1 inhaler 03/13/19 [Rx] Famotidine 10 mg PO BID #30 tab 03/13/19 [Rx] Levofloxacin [Levaquin] 500 mg PO Q24H 7 Days #7 tab 03/13/19 [Rx] predniSONE 0 mg PO DIRECTED #26 tab 03/13/19 [Rx] Follow up Appointment(s)/Referral(s): Zander Joe DO [Doctor of Osteopathic Medicine] - 1 Week Odalys Ansari MD [STAFF PHYSICIAN] - 1 Week Activity/Diet/Wound Care/Special Instructions: regular diet Activity as tolerated Discharge Disposition: HOME SELF-CARE
[2019-03-13] MEDS ORDERED: LEVOFLOXACIN 500 MG TAB PO SCH (23:00)
[2019-03-14] MEDS ORDERED: predniSONE 20 MG TAB PO SCH (09:00)
== END 2019-03-13 12:39 | disposition home or self-care (01) | DRG 871 ==
LOC: EC 21:59 → 4MS4W 23:14
PROVIDERS: ADMIT Internal Medicine; ATTEND Internal Medicine
DX: A41.9 Sepsis, unspecified organism (principal); J18.9 Pneumonia, unspecified organism; Z68.42 Body mass index [BMI] 45.0-49.9, adult; E66.9 Obesity, unspecified; J98.01 Acute bronchospasm; R09.02 Hypoxemia; D72.829 Elevated white blood cell count, unspecified; T38.0X5A Adverse effect of glucocorticoids and synthetic analogues, initial encounter; N92.6 Irregular menstruation, unspecified; Z79.890 Hormone replacement therapy; E03.9 Hypothyroidism, unspecified; Z80.9 Family history of malignant neoplasm, unspecified
CPT/HCPCS: 36415; 71046; 80053; 81001; 81025; 83605; 85025; 87040; 87070; 87205; 87449; 87502; 94640; 96365; 96375; 99285

== ENCOUNTER 2022-03-05 03:26 | Emergency (ER) | payer BC, OTHER ==
[2022-03-05] MEDS ORDERED: ALBUTEROL NEBULIZED 2.5 MG/3 ML INHALATION STA (05:54)
--- NOTE | 2022-03-05 05:59 | ED ---
URI HPI - General Chief Complaint: Upper Respiratory Infection Stated Complaint: Mouth swelling Time Seen by Provider: 03/05/22 05:45 Source: patient Mode of arrival: ambulatory Limitations: no limitations - History of Present Illness Initial Comments: This patient is 36-year-old woman who presents to have evaluation for congestion, cough, cold sensation and over the past day. Patient's symptoms began approximately 4 days ago. She states that in the past she has had to use Beata she gets severe respiratory infections. She states that she feels like she is getting that point. This far she has only taken NyQuil for the symptoms, MD Complaint: fever, cough, nasal congestion -: days(s) Consistency: constant Improves With: nothing Worsens With: nothing Associated Symptoms: fever, nasal congestion Treatments Prior to Arrival: "cold medicine" - Related Data Previous Rx's Medication Instructions Recorded Acetaminophen Tab [Tylenol] 650 mg PO Q6HR PRN tab 03/13/19 Albuterol Inhaler [Ventolin Hfa 1 - 2 puff INHALATION RT-Q6H PRN 03/13/19 Inhaler] #1 inhaler Famotidine 10 mg PO BID #30 tab 03/13/19 Levofloxacin [Levaquin] 500 mg PO Q24H 7 Days #7 tab 03/13/19 predniSONE 0 mg PO DIRECTED #26 tab 03/13/19 Albuterol Inhaler [Ventolin Hfa 1 - 2 puff INHALATION Q6HR PRN #1 03/05/22 Inhaler] each predniSONE 60 mg PO DAILY #30 tab 03/05/22 Allergies Allergy/AdvReac Type Severity Reaction Status Date / Time No Known Allergies Allergy Verified 03/11/19 23:49 Review of Systems ROS Statement: Those systems with pertinent positive or pertinent negative responses have been documented in the HPI. ROS Other: All systems not noted in ROS Statement are negative. Constitutional: Reports: fever. Denies: chills, weakness ENT: Reports: congestion Respiratory: Reports: cough, wheezes. Denies: dyspnea, hemoptysis Cardiovascular: Denies: chest pain, palpitations, edema, syncope Gastrointestinal: Denies: abdominal pain, vomiting, diarrhea Genitourinary: Denies: dysuria, hematuria Musculoskeletal: Denies: back pain Skin: Denies: rash Neurological: Denies: weakness Past Medical History Past Medical History: No Reported History, Thyroid Disorder Additional Past Medical History / Comment(s): IRREGULAR PERIODS History of Any Multi-Drug Resistant Organisms: None Reported Past Surgical History: No Surgical Hx Reported Past Anesthesia/Blood Transfusion Reactions: No Reported Reaction Additional Past Anesthesia/Blood Transfusion Reaction / Comment(s): NO PRIOR SURGICAL HX Past Psychological History: No Psychological Hx Reported Smoking Status: Never smoker Past Alcohol Use History: None Reported Past Drug Use History: None Reported - Past Family History Mother Family Medical History: Cancer General Exam Limitations: no limitations General appearance: alert, in no apparent distress Head exam: Present: atraumatic, normocephalic Eye exam: Present: normal appearance. Absent: scleral icterus, conjunctival injection Neck exam: Present: normal inspection Respiratory exam: Present: wheezes. Absent: respiratory distress, rales, rhonchi, stridor Cardiovascular Exam: Present: regular rate, normal rhythm, normal heart sounds. Absent: systolic murmur, diastolic murmur, rubs, gallop GI/Abdominal exam: Present: soft. Absent: distended, tenderness, guarding, rebound Extremities exam: Present: normal inspection, normal capillary refill. Absent: pedal edema, calf tenderness Back exam: Present: normal inspection. Absent: CVA tenderness (R), CVA tenderness (L) Neurological exam: Present: alert Skin exam: Present: warm, dry, intact, normal color. Absent: rash Course Vital Signs 03/05/22 03:33 Temperature 99.1 F Pulse Rate 106 H Respiratory 16 Rate Blood Pressure 173/107 O2 Sat by Pulse 98 Oximetry Medical Decision Making - Lab Data Lab Results 03/05/22 Range/Units 06:02 Coronavirus (PCR) Not Detected (Not Detectd) Disposition Clinical Impression: Bronchitis Disposition: HOME SELF-CARE Condition: Good Instructions (If sedation given, give patient instructions): Upper Respiratory Infection (ED) Prescriptions: predniSONE 60 mg PO DAILY #30 tab Albuterol Inhaler [Ventolin Hfa Inhaler] 1 - 2 puff INHALATION Q6HR PRN #1 each PRN Reason: Wheezing Is patient prescribed a controlled substance at d/c from ED?: No Referrals: None,Stated [Primary Care Provider] - 1-2 days
--- NOTE | 2022-03-05 06:28 | XR ---
EXAMINATION TYPE: XR chest 2V DATE OF EXAM: 03/05/2022 COMPARISON: 03/11/2019 HISTORY: Cough TECHNIQUE: FINDINGS: Heart is normal. Lungs are clear. Images normal. Bony thorax is intact. IMPRESSION: Normal chest. There is clearing of the bilateral pulmonary infiltrates compared to old e xam.
[2022-03-05 07:39] VITALS: BP 146/81; PULSE 98; RESP 18; TEMP 99
== END 2022-03-05 07:50 | disposition home or self-care (01) ==
LOC: EC 03:26
DX: J40 Bronchitis, not specified as acute or chronic (principal); Z79.899 Other long term (current) drug therapy; Z20.822 Contact with and (suspected) exposure to COVID-19
CPT/HCPCS: 71046; 87635; 94640; 99283